=== PATIENT | female | born 1975 | race Caucasian/White ===

== ENCOUNTER 2021-08-04 20:18 | Emergency (ER) | payer OTHER ==
[2021-08-04] MEDS ORDERED: Take Home: Doxycycline 100 MG Tab, 4 Tab Pack PO ONE (20:51)
[2021-08-04] MEDS ORDERED: Bacitracin/Neomycin/Polymyxin B Oint 28.4 GM Tube TOP ONE (21:17)
[2021-08-04] MEDS ORDERED: Bacitracin/Neomycin/Polymyxin B Oint 0.9 GM U/D Packet TOP ONE (21:21)
--- NOTE | 2021-08-04 21:22 | EDM.PDOC ---
ED HPI GENERAL MEDICAL PROBLEM - General Chief Complaint: Skin Complaint Stated Complaint: dog bite Time Seen by Provider: 08/04/21 20:30 Source of Information: Reports: Patient History Limitations: Reports: No Limitations - History of Present Illness INITIAL COMMENTS - FREE TEXT/NARRATIVE: Francheska is a 46 yo female who presents to the ED with concerns of a dog bite. States she was introducing her dog to her boyfriend's dog and they started to fight. She states she went to break it up and the dog bit her arm. Both dogs are up to date on their immunizations. She received her tetanus vaccine in 2019. States right away she did go wash the wound with soap and water. Right Lower Arm Pain Score (Numeric/FACES): 2 - Related Data Allergies Allergy/AdvReac Type Severity Reaction Status Date / Time cephalexin Allergy Hives Verified 08/04/21 20:19 Penicillins Allergy Hives Verified 08/04/21 20:19 Home Meds: Home Meds Levothyroxine 125 mcg PO ACBREAKFAST 08/04/21 [History] Past Medical History HEENT History: Reports: None Cardiovascular History: Reports: Hypertension Respiratory History: Reports: None Gastrointestinal History: Reports: None Genitourinary History: Reports: None Musculoskeletal History: Reports: None Neurological History: Reports: None Psychiatric History: Reports: None Endocrine/Metabolic History: Reports: Hypothyroidism, Obesity/BMI 30+ Social & Family History - Tobacco Use Tobacco Use Status *Q: Never Tobacco User Tobacco Use Within Last Twelve Months: No - Alcohol Use Alcohol Use History: No ED ROS GENERAL - Review of Systems Review Of Systems: Comprehensive ROS is negative, except as noted in HPI. ED EXAM, SKIN/RASH Exam: See Below Exam Limited By: No Limitations General Appearance: Alert, WD/WN, No Apparent Distress Psychiatric: Normal Affect, Normal Mood Skin: Warm, Normal Color, Wound/Incision (1.4cm linear laceration to anterior right forearm. 2.5cm superficial abrasion/laceration to posterior right forearm. ) ED SKIN PROCEDURES - Laceration/Wound Repair Right Anterior Medial Arm Appearance: Subcutaneous, Linear, Clean Distal NVT: Neuro & Vascular Intact, No Tendon Injury Anesthetic Type: Local Local Anesthesia - Lidocaine (Xylocaine): 1% Plain Local Anesthetic Volume: 3cc Skin Prep: Providone-Iodine (Betadine), Saline, Sterile Drape Exploration/Debridement/Repair: Wound Explored, In a Bloodless Field, Explored to Base Closed with: Sutures Lac/Wound length In cm: 1.4 Suture Size: 4-0 # of Sutures: 3 Suture Type: Prolene, Interrupted, Simple Sterile Dressing Applied: Nurse Tetanus Status Addressed: Yes Complications: No Course - Vital Signs Last Recorded V/S: Last Vital Signs Temp 97.7 F 08/04/21 20:20 Pulse 78 08/04/21 20:20 Resp 16 08/04/21 20:20 BP 130/84 08/04/21 20:20 Pulse Ox 98 08/04/21 20:20 - Orders/Labs/Meds Orders: Active Orders 24 hr Category Date Time Status Bacitracin/Neomycin/Polymyxin [Triple Antibiotic Oint] Med 08/04/21 21:17 Once 1 gm TOP ONETIME ONE Medication Orders Neomycin/Polymyxin/Bacitracin (Bacitracin/Neomycin/Polymyxin B Oint 28.4 Gm Tube) 1 gm TOP ONETIME ONE Stop: 08/04/21 21:18 Meds: Medications Generic Name Dose Route Start Last Admin Trade Name Freq PRN Reason Stop Dose Admin Neomycin/Polymyxin/Bacitracin 1 gm 08/04/21 21:17 Bacitracin/Neomycin/Polymyxin B Oint 28.4 Gm Tube TOP 08/04/21 21:18 ONETIME ONE Discontinued Medications Generic Name Dose Route Start Last Admin Trade Name Freq PRN Reason Stop Dose Admin Doxycycline Monohydrate 1 packet 08/04/21 20:51 Take Home: Doxycycline 100 Mg Tab, 4 Tab Pack PO 08/04/21 20:52 ONETIME ONE Lidocaine HCl 5 ml 08/04/21 20:53 Lidocaine 1% 5 Ml Sdv INJECT 08/04/21 20:54 ONETIME ONE Departure - Departure Time of Disposition: 21:23 Disposition: Home, Self-Care 01 Clinical Impression: Dog bite of arm Qualifiers: Encounter type: initial encounter Laterality: right Qualified Code(s): S41.151A - Open bite of right upper arm, initial encounter; W54.0XXA - Bitten by dog, initial encounter - Discharge Information Instructions: Animal Bite, Adult, [id number] Forms: ED Department Discharge Additional Instructions: 1) Sutures in for 10 days then will need to be removed 2) Keep wound clean and dry, do not soak 3) Doxycycline 100mg twice a day for 10 days, take home pack provided for first 2 days 4) Tetanus addressed and Td given in 2019 5) Watch for any signs of infection (redness, warmth, swelling, drainage, discomfort, etc...). If any symptoms arise, advise reevaluation. 6) May use Tylenol or ibuprofen for discomfort, as directed on bottles. Sepsis Event Note (ED) - Evaluation Sepsis Screening Result: No Definite Risk - Focused Exam Vital Signs: Vital Signs Temp Pulse Resp BP Pulse Ox 08/04/21 20:20 97.7 F 78 16 130/84 98 - Problem List & Annotations (1) Dog bite of arm SNOMED Code(s): 489423116 Code(s): S41.159A - OPEN BITE OF UNSPECIFIED UPPER ARM, INITIAL ENCOUNTER; W54.0XXA - BITTEN BY DOG, INITIAL ENCOUNTER Status: Acute Qualifiers: Encounter type: initial encounter Laterality: right Qualified Code(s): S41.151A - Open bite of right upper arm, initial encounter; W54.0XXA - Bitten by dog, initial encounter - My Orders Last 24 Hours: My Active Orders 08/04/21 21:17 Bacitracin/Neomycin/Polymyxin [Triple Antibiotic Oint] 1 gm TOP ONETIME ONE - Assessment/Plan Last 24 Hours: My Active Orders 08/04/21 21:17 Bacitracin/Neomycin/Polymyxin [Triple Antibiotic Oint] 1 gm TOP ONETIME ONE Plan: Wound closed without any complications. Patient verbalized understanding of dog bite closures and risk of infection. Elected to proceed with closure. No com plications. Tetanus status addressed and up to date. Plan for discharge.
== END 2021-08-04 21:35 | disposition home or self-care (01) ==
LOC: CC.ED 20:18
DX: S50.871A Other superficial bite of right forearm, initial encounter (principal); E03.9 Hypothyroidism, unspecified; I10 Essential (primary) hypertension; E66.9 Obesity, unspecified; Z68.41 Body mass index [BMI] 40.0-44.9, adult; Z88.0 Allergy status to penicillin; Z88.1 Allergy status to other antibiotic agents; W54.0XXA Bitten by dog, initial encounter
CPT/HCPCS: 12001; 99283; A9270